=== PATIENT | female | born 1995 | race Caucasian/White ===

== ENCOUNTER 2019-09-23 18:20 | Day surgery (SDC) | payer BC, OTHER ==
[2019-09-23 18:54] VITALS: BMI 22.8
[2019-09-23] MEDS ORDERED: hydrALAZINE 20 MG/ML VIAL SLOW IVP PRN (19:06)
--- NOTE | 2019-09-23 19:10 | PDOC.LDHP ---
Labor and Delivery H&P Chief complaint: contractions HPI: 23 y/o G1 @ 38.3 wks presents to L&D for ctx that started at 2:30 PM. she states she thought she was having gas pain and then noticed they increased in intensity to 6/10 pain and the timing was about every 5 min. Pt denies LOF, vaginal d/c. states she has minimal vag spotting that was present at her last office visit after being check. She was a 2 yesterday office visit with Snehal Lesley, mid- . denies recent sexual intercourse. reports good movements. PCP: mid- Snehal Sutton Current gestational age (weeks): 38 (3 days ) Due date: 10/03/29 Grav: 1 Para: 0 OB History Details: no complications Current complications: none Past Medical History: no known medical problems Current medications: pre- vitamins Previous surgical history: other (tympanostomy as child) Allergies/Adverse Reactions: Allergies Allergy/AdvReac Type Severity Reaction Status Date / Time amoxicillin Allergy Mild Hives Verified 09/23/19 18:55 clavulanic acid Allergy Mild Hives Verified 09/23/19 18:55 [From Augmentin] vancomycin Allergy Mild Hives Verified 09/23/19 18:55 Social history: none (denies etoh, tobacco or drug use.) - Physical Exam Vital signs reviewed and normal: yes General: NAD Heart: RRR Lungs: CTAB Abdomen: gravid Extremeties: no edema FHT: category 1, variability present (130 fht baseline, with mod variability and accels present) [place] contractions every: 2 min - Vaginal Exam cm dilated: 2 Effacement: 75% Station: -2 - OB Labs Blood type: A RH: negative Antibody Screen: negative HIV: negative RPR: negative HEPSAg: negative GBS: negative Rubella: immune - Assessment Term latent labor - Plan Plan: observation in L&D -: 23 y/o @ 38.3 wks presents to L&D for ctx 1. sIUP @ 38.3 wks - cephalic presentation on palpation - toco: Q2min ctx - FHT 130 baseline with cat 1 strip - SVE: /-2, by Nurse Lincoln - GBS negative 2. ctx - will recheck in 1-2 hours and d/c pending no change, admit if active labor stage. Dispo: Stable, observe in L&D for 1-2 hours to recheck SVE for change to active stage of labor. Pt agreeable to plan. Plan discussed with Dr. Velasco who is in agreement with above stated plan. Addendum - Attending - Attending Attestation Date/Time: 09/23/192102 I personally evaluated the patient and discussed the management with Dr. Nascimento. I agree with the History, Examination, Assessment and Plan documented above.
--- NOTE | 2019-09-23 20:30 | PDOC.BPN ---
<Desiree Nascimento - Last Filed: 09/23/19 20:29> - Brief Progress Note no change on SVE /-2 pt in pain and in tears from ctx. <Cornelius Velasco - Last Filed: 09/23/19 21:11> Addendum - Attending - Attending Attestation Date/Time: 09/23/19 2111 I personally evaluated the patient and discussed the management with Dr. Nascimento. To discuss with Rhiannon Sutton.
--- NOTE | 2019-09-23 21:05 | PDOC.BPN ---
<Desiree Nascimento - Last Filed: 09/23/19 21:03> - Brief Progress Note PCP, Snehal Sutton, called; she ordered for demerol and phenergan to be given to the patient. And advised her to go home to continue the latent stage of labor at home. Pt agreeable to plan. Discharged home with return precautions. Plan discussed with Dr. Velasco who is in agreement with the above stated plan. <Cornelius Velasco - Last Filed: 09/23/19 21:10> Addendum - Attending - Attending Attestation Date/Time: 09/23/194 I personally evaluated the patient and discussed the management with Dr. Nascimento. Sedation ordered by Rhiannon Sutton, pt. may go home per her instructions. I agree with the History, Examination, Assessment and Plan documented above.
[2019-09-23] MEDS ORDERED: Promethazine HCl 25 MG/ML VIAL IM SCH (21:15)
== END 2019-09-23 21:43 | disposition home or self-care (01) ==
LOC: L&D/OP 18:20
PROVIDERS: ATTEND Advanced Practice Midwife
DX: O47.1 False labor at or after 37 completed weeks of gestation (principal); Z3A.38 38 weeks gestation of pregnancy; Z88.0 Allergy status to penicillin; Z88.1 Allergy status to other antibiotic agents
CPT/HCPCS: J2175; J2550

== ENCOUNTER 2019-09-25 03:16 | Inpatient (IN) | payer BC, OTHER ==
[2019-09-25 03:46] VITALS: BMI 22.8
[2019-09-25] MEDS ORDERED: HYDROcodone/Acetaminophen 5/325 mg Tablet PO PRN ×2 (03:50→15:17)
[2019-09-25] MEDS ORDERED: NS / Oxytocin 40 units/1000ml 1,000 ML IV PRN (03:50)
[2019-09-25] MEDS ORDERED: hydrALAZINE 20 MG/ML VIAL SLOW IVP PRN ×2 (03:50→15:17)
[2019-09-25] MEDS ORDERED: Butorphanol Tartrate 1 MG/ML VIAL SLOW IVP PRN (03:50)
[2019-09-25] MEDS ORDERED: Ibuprofen 800 MG TAB PO PRN (03:50)
[2019-09-25] MEDS ORDERED: Ondansetron PF 4 MG/2 ML Vial IVP PRN ×3 (03:50→15:17)
[2019-09-25] MEDS ORDERED: Lidocaine 1% (PF) 30 ML VIAL SC PRN (03:50)
[2019-09-25] MEDS ORDERED: Fentanyl 4 mcg/Bup 0.1% Cadd 100 ML ONE ×2 (03:52→11:14)
[2019-09-25] MEDS ORDERED: Lactated Ringer's 1,000 ML IV SCH (04:00)
[2019-09-25 04:15] LABS: Hemoglobin 10.9 g/dL (12.0-16.0); Mean Corpuscular HGB CONC 32.9 g/dL (32.0-36.0); Mean Corpuscular Hemoglobin 25.4 pg (27.0-31.0); Mean Corpuscular Volume 77.1 fL (78.0-98.0); Mean Platelet Volume 10.5 fL (7.4-10.4); Platelet Count 298 thou/uL (130-400); RBC Distribution Width 15.7 % (11.5-14.5); White Blood Cell (WBC) Count 17.9 thou/uL (4.8-10.8)
[2019-09-25] MEDS ORDERED: diphenhydrAMINE 50 MG/ML VIAL IVP PRN (04:45)
[2019-09-25] MEDS ORDERED: Fentanyl 4 mcg/Bupivacaine 0.1% Cassette 100 ML EPIDURAL SCH (04:45)
[2019-09-25] MEDS ORDERED: Promethazine HCl 25 MG/ML VIAL IM PRN (04:45)
[2019-09-25] MEDS ORDERED: Acetaminophen 325 MG TAB PO PRN (04:45)
[2019-09-25] MEDS ORDERED: Communication Order-Pharmacy FS SCH (04:45)
[2019-09-25] MEDS ORDERED: Naloxone HCl 0.4 mg/ml Vial IVP PRN ×2 (04:45)
[2019-09-25] MEDS ORDERED: EPHEDRINE 25 MG/5 ML SYRINGE SLOW IVP PRN (04:45)
[2019-09-25] MEDS ORDERED: Lactated Ringer's 500 ML IV PRN (04:45)
[2019-09-25 05:35] LABS: HBSAg Index 0.17 S/CO (0-0.99); Hep B Surf Ag Non-Reactive S/CO (NonReactive)
[2019-09-25 05:42] LABS: Syphilis Antibody Nonreactive (Nonreactive); Syphilis Antibody Index 0.03 S/CO (<1.00 Non-Reactive)
--- NOTE | 2019-09-25 08:21 | PDOC.LDHP ---
Labor and Delivery H&P Chief complaint: contractions HPI: Patient has been benjie since Sat. Was triaged once and sent home with therpeutic rest. at 0100 on 09/25/19 the contractions got really bad and she came back to L&D. No other concerns. affirms movement. Current gestational age (weeks): 38 (5days) Due date: 10/04/19 Grav: 1 Para: 0 Current complications: none Current medications: pre-tabitha vitamins Previous surgical history: none Allergies/Adverse Reactions: Allergies Allergy/AdvReac Type Severity Reaction Status Date / Time amoxicillin Allergy Mild Hives Verified 09/23/19 18:55 clavulanic acid Allergy Mild Hives Verified 09/23/19 18:55 [From Augmentin] vancomycin Allergy Mild Hives Verified 09/23/19 18:55 - Physical Exam Vital signs reviewed and normal: yes General: resting (with epidural in place) Lungs: nonlabored breathing Abdomen: gravid FHT: category 1 - Vaginal Exam cm dilated: 7 Effacement: 100% Station: 0 - OB Labs Blood type: A RH: negative Antibody Screen: negative HIV: negative RPR: negative HEPSAg: negative 1 hour GCT: positive 3 hour GTT: Unable to complete. FSGS x 2 weeks WNML GBS: negative Urine drug screen: negative Rubella: immune - Assessment L&D Assessment: term patient in labor - Plan Plan: admit to L&D, informed consent obtained, anesthesia consult for pain management -: AROM for augmentation Anticipate . Rhogam after delivery.
[2019-09-25] MEDS ORDERED: Misoprostol 200 MCG TAB ONE (10:52)
[2019-09-25] MEDS: Lactated Ringer's 1,000 ML IV SCH ×2 (11:19→23:30)
[2019-09-25] MEDS ORDERED: Bupivacaine/Epinephrine 0.25% 30 ML VIAL ONE (12:56)
--- NOTE | 2019-09-25 12:57 | PDOC.OPDEL ---
OB Operative/Delivery Note Delivery Dr/Surgeon: Light Pre-Delivery Diagnosis: active labor Procedure/Post Delivery Dx: spontaneous vaginal delivery Weeks gestation: 38 Anesthesia: epidural - Additional Findings/Plan Placenta delivered: spontaneous Repaired Obstetrical Laceration: none Estimated blood loss: 50 Post delivery plan: routine recovery
[2019-09-25] MEDS ORDERED: NS / Oxytocin 40 units/1000ml 1,000 ML ONE (13:53)
[2019-09-25] MEDS ORDERED: NS w/ Oxytocin 10 units 500 ML ONE (13:53)
[2019-09-25] MEDS ORDERED: Benzocaine-Menthol 82.5 ML CAN TOP PRN (15:17)
[2019-09-25] MEDS ORDERED: Bisacodyl 10 MG SUPP PR PRN (15:17)
[2019-09-25] MEDS ORDERED: Misoprostol 200 MCG TAB VAG PRN (15:17)
[2019-09-25] MEDS ORDERED: Milk Of Magnesia 30 ML UDCUP PO PRN (15:17)
[2019-09-25] MEDS ORDERED: Adacel (T-DAP) 0.5 ML SYRINGE IM ONE (15:17)
[2019-09-25] MEDS ORDERED: NS / Oxytocin 40 units/1000ml 1,000 ML IV SCH (15:17)
[2019-09-25] MEDS: Ferrous Sulfate 325 MG TAB PO SCH (18:01)
[2019-09-25] MEDS: Ibuprofen 800 MG TAB PO SCH ×2 (19:49→20:53)
[2019-09-25] MEDS: Docusate Calcium (SURFAK) 240 MG CAP PO SCH (20:53)
[2019-09-25] MEDS: HYDROcodone/Acetaminophen 5/325 mg Tablet PO PRN (23:49)
[2019-09-26] MEDS ORDERED: Lanolin Ointment 7 GM TUBE TOP PRN (04:03)
[2019-09-26] MEDS: Ibuprofen 800 MG TAB PO SCH ×3 (04:05→21:17)
[2019-09-26] MEDS: Ferrous Sulfate 325 MG TAB PO SCH ×2 (08:23→17:44)
[2019-09-26] MEDS: Docusate Calcium (SURFAK) 240 MG CAP PO SCH ×2 (08:24→21:16)
[2019-09-26] MEDS: Prenatal Vitamin 1 TAB PO SCH (08:24)
[2019-09-26] MEDS: HYDROcodone/Acetaminophen 5/325 mg Tablet PO PRN ×2 (12:02→18:34)
[2019-09-27] MEDS: Ibuprofen 800 MG TAB PO SCH ×2 (06:21→13:36)
[2019-09-27] MEDS: Docusate Calcium (SURFAK) 240 MG CAP PO SCH (08:12)
[2019-09-27] MEDS: Prenatal Vitamin 1 TAB PO SCH (08:12)
[2019-09-27] MEDS: Ferrous Sulfate 325 MG TAB PO SCH (08:13)
[2019-09-27 08:31] VITALS: BP 113/58; TEMP 97.8
== END 2019-09-27 16:20 | disposition home or self-care (01) | DRG 807 ==
LOC: L&D/OP 03:16 → L&D 06:09 → 3SW 16:09
PROVIDERS: ADMIT Obstetrics & Gynecology; ATTEND Obstetrics & Gynecology
PROC: 10E0XZZ Delivery of Products of Conception, External Approach (ICD-10-PCS; principal; 2019-09-25)
PROC: 10907ZC Drainage of Amniotic Fluid, Therapeutic from Products of Conception, Via Natural or Artificial Opening (ICD-10-PCS; 2019-09-25)
DX: O80 Encounter for full-term uncomplicated delivery (principal); Z37.0 Single live birth; Z3A.38 38 weeks gestation of pregnancy; Z88.1 Allergy status to other antibiotic agents; Z88.8 Allergy status to other drugs, medicaments and biological substances
CPT/HCPCS: 36415; 51702; 85027; 85461; 86780; 86850; 86870; 86900; 86901; 87340; 90384; 96372; 99283; 99285; J2175; J2550; J2590